=== PATIENT | male | born 1995 | race Caucasian/White ===

== ENCOUNTER 2019-08-11 13:12 | Emergency (ER) | payer MEDICAID ==
[~2019-08-11] VITALS: Ht 172.7 cm; Wt 109.8 kg
[2019-08-11 13:17] VITALS: BP 135/89
[2019-08-11] MEDS ORDERED: ALBUTEROL 0.083% 2.5 MG/3 ML NEBU INH ONE (14:10)
[2019-08-11] MEDS ORDERED: KETOROLAC 60 MG/2 ML VIAL IM ONE (14:10)
[2019-08-11 16:08] VITALS: BP 112/68
== END 2019-08-11 16:07 | disposition home or self-care (01) ==
LOC: MED 13:12
DX: R09.1 Pleurisy (principal); F12.90 Cannabis use, unspecified, uncomplicated
CPT/HCPCS: 71046; 94640; 96372; 99283; J1885; J7613; 93005

== ENCOUNTER 2021-08-30 15:30 | Emergency (ER) | payer MEDICAID, OTHER ==
[~2021-08-30] VITALS: Ht 170.2 cm; Wt 123.4 kg
[2021-08-30 15:46] VITALS: BP 147/93
--- NOTE | 2021-08-30 15:57 | NUR ---
PT AMBULATED TO ER BED 4 WITH A STEADY GAIT.
--- NOTE | 2021-08-30 16:02 | NUR ---
25 Y/O MALE C/O RECTAL PAIN 04/21 DESCRIBES SHARP WITH PALPATION PER MD X 2DAYS. PT STATES AGGRAVATED BY WALKING AND COUGHING. PT REPORTS LAST BM 08/29/21 WITH HARD STOOLS. DENIES RECTAL BLEEDING. DENIES TRAUMA TO AREA. DENIES URINARY SYMPTOMS. NO MEDS TAKEN. DENIES PMH NKA
--- NOTE | 2021-08-30 16:23 | NUR ---
DR. MIRANDA AT PT BEDSIDE FOR FURTHER EVALUATION.
--- NOTE | 2021-08-30 16:23 | NUR ---
Female [employer] Assembler accompanied male patient for Rectal Exam.
--- NOTE | 2021-08-30 16:42 | NUR ---
PT TAKEN TO XR VIA W/C.
--- NOTE | 2021-08-30 16:51 | NUR ---
PT TAKEN TO ER BED 4 VIA W/C.
[2021-08-30] MEDS ORDERED: HYDR25SU91 RC (17:12)
[2021-08-30] MEDS ORDERED: NAPR-54 PO (17:12)
[2021-08-30 17:40] VITALS: BP 141/84
--- NOTE | 2021-08-30 17:42 | NUR ---
Patient discharged with v/s stable. Written and verbal after care instructions given HEMORRHOIDSand explained. Patient alert, oriented and verbalized understanding of instructions. Ambulatory with steady gait. All questions addressed prior to discharge. ID band removed. Patient advised to follow up with PMD. Rx of ANUSOL AND NAPROXEN given. Patient educated on indication of medication including possible reaction and side effects. Opportunity to ask questions provided and answered.
== END 2021-08-30 17:42 | disposition home or self-care (01) ==
LOC: MED 15:30
DX: K62.89 Other specified diseases of anus and rectum (principal); Z79.899 Other long term (current) drug therapy
CPT/HCPCS: 74018; 99283

== ENCOUNTER 2022-05-13 08:50 | Emergency (ER) | payer OTHER ==
[~2022-05-13] VITALS: Ht 172.7 cm; Wt 116.1 kg
[~2022-05-13 08:50] MED LIST: HYDR25SU91 RC; NAPR-54 PO
[2022-05-13 08:51] VITALS: BP 154/96
[2022-05-13] MEDS ORDERED: ONDANSETRON 4 MG/2 ML VIAL IVP ONE ×2 (09:05→10:00)
[2022-05-13] MEDS ORDERED: NACL 0.9% 1,000 ML IV ONE (09:05)
[2022-05-13 09:31] LABS: BASOPHILS % (AUTO) 0.3 % (0.0-2.0); EOSINOPHILS # (AUTO) 0.1 K/uL (0-0.4); EOSINOPHILS % (AUTO) 1.6 % (0.0-4.0); HEMATOCRIT 45.9 % (36-52); HEMOGLOBIN 15.5 g/dL (12.0-18.0); LYMPHOCYTES # (AUTO) 1.6 K/uL (2.0-11.5); LYMPHOCYTES % (AUTO) 19.3 % (20.5-51.1); MEAN CORPUSCULAR HEMOGLOBIN 29 pg (27-31); MEAN CORPUSCULAR HGB CONC 34 g/dL (33-37); MEAN CORPUSCULAR VOLUME 84.3 fL (80-94); MONOCYTES # (AUTO) 1.2 K/uL (0.8-1.0); MONOCYTES % (AUTO) 14.4 % (1.7-9.3); NEUTROPHILS # (AUTO) 5.2 K/uL (1.8-7.7); NEUTROPHILS % (AUTO) 64.4 % (42.2-75.2); PLATELET COUNT (AUTO) 203 K/uL (140-450); RED BLOOD CELL COUNT(AUTO) 5.44 MIL/uL (4.20-6.10); RED CELL DISTRIBUTION WIDTH 13.8 % (11.6-13.7); WHITE BLOOD COUNT (AUTO) 8.1 K/uL (4.8-10.8)
--- NOTE | 2022-05-13 09:45 | NUR ---
26 Y/O MALE BIB SELF C/O OF ABD PAIN, N/V/D AND CONDE X3DAYS. PER PT HE ATE A BURRITO AND A TACO FROM A STREET STALL. DENIES ANY BLOOD IN STOOL OR VOMITUS. NKA PMH: DENIES
[2022-05-13 09:54] LABS: ALBUMIN 3.8 g/dL (3.4-5.0); ANION GAP 12.4 (8-16); CARBON DIOXIDE 28.5 mmol/L (21-32); CREATININE 0.9 mg/dL (0.6-1.3); POTASSIUM 3.9 mmol/L (3.5-5.1); TOTAL BILIRUBIN 0.4 mg/dL (0.0-1.0)
[2022-05-13] MEDS ORDERED: KETOROLAC 30 MG/ML VIAL IVP ONE (10:00)
--- NOTE | 2022-05-13 10:00 | NUR ---
DR MIRANDA AT BEDSIDE FOR EVAL
--- NOTE | 2022-05-13 10:19 | NUR ---
PT AMBULATED TO BATHROOM WITH STEADY GAIT
[2022-05-13 10:24] VITALS: BP 135/85
[2022-05-13 11:02] LABS: APPEARANCE,URINE CLEAR (CLEAR); BILIRUBIN,URINE NEGATIVE (NEGATIVE); BLOOD, URINE NEGATIVE (NEGATIVE); COLOR,URINE YELLOW (YELLOW); LEUKOCYTE ESTERASE ,URINE NEGATIVE (NEGATIVE); NITRITE, URINE NEGATIVE (NEGATIVE); UGLUCOSE NEGATIVE (NEGATIVE)
[2022-05-13] MEDS ORDERED: AMOX500C25 PO (11:26)
[2022-05-13] MEDS ORDERED: NAPR-54 PO (11:26)
[2022-05-13] MEDS ORDERED: ONDA-188 SL (11:26)
--- NOTE | 2022-05-13 11:45 | NUR ---
Patient discharged with v/s stable. Written and verbal after care instructions given and explained. Patient alert, oriented and verbalized understanding of instructions. Ambulatory with steady gait. All questions addressed prior to discharge. ID band removed. Patient advised to follow up with PMD. Rx of AMOXICILLIN, NAPROXEN, ZOFRAN ODT given. Patient educated on indication of medication including possible reaction and side effects. Opportunity to ask questions provided and answered.
== END 2022-05-13 11:45 | disposition home or self-care (01) ==
LOC: MED 08:50
DX: J02.9 Acute pharyngitis, unspecified (principal); R11.2 Nausea with vomiting, unspecified; R19.7 Diarrhea, unspecified; F12.90 Cannabis use, unspecified, uncomplicated; Z79.899 Other long term (current) drug therapy
CPT/HCPCS: 36415; 80053; 81003; 83690; 85025; 87081; 96361; 96374; 96375; 99284; J1885; J2405; J7030

== ENCOUNTER 2022-08-16 14:40 | Emergency (ER) | payer OTHER ==
[~2022-08-16] VITALS: Ht 175.3 cm; Wt 117.9 kg
[~2022-08-16 14:40] MED LIST changes: +AMOX500C25 PO; +ONDA-188 SL
[2022-08-16 14:52] VITALS: BP 163/101
--- NOTE | 2022-08-16 14:52 | NUR ---
PT AMBULATED TO ER BED 7
--- NOTE | 2022-08-16 15:02 | NUR ---
PA Andrew evaluating patient at bedside.
--- NOTE | 2022-08-16 15:05 | NUR ---
26 y/o male bib self with c/o ear difficulty hearing out of bilateral ears and pressure x 4 days. Per patient, he cleans the inside of his ears with Q-tips and recently stopped. Patient denies any pain, fever or chills. Medical History: Denies NKDA
--- NOTE | 2022-08-16 15:32 | NUR ---
bilateral ears irrigated with solution of normal saline, hydrogen peroxide
[2022-08-16] MEDS ORDERED: CARB15DR61 OT (15:45)
[2022-08-16] MEDS ORDERED: AMOX-999 PO (15:45)
[2022-08-16 16:07] VITALS: BP 167/97
--- NOTE | 2022-08-16 16:07 | NUR ---
Patient discharged with v/s stable. Written and verbal after care instructions given. Patient alert, oriented and verbalized understanding of instructions. Ambulatory with to car. All questions addressed prior to discharge. ID band removed. Patient advised to follow up with PMD. Rx of Augmentin 500-125 Tablet and Debrox given. Opportunity to ask questions provided and answered.
--- NOTE | 2022-08-16 16:14 | NUR ---
The patient's care was reviewed and supervised by [facility], RN.
== END 2022-08-16 16:07 | disposition home or self-care (01) ==
LOC: MED 14:40
DX: H61.22 Impacted cerumen, left ear (principal); H66.92 Otitis media, unspecified, left ear; R03.0 Elevated blood-pressure reading, without diagnosis of hypertension
CPT/HCPCS: 99283

== ENCOUNTER 2022-10-09 07:01 | Emergency (ER) | payer OTHER ==
[~2022-10-09] VITALS: Ht 172.7 cm; Wt 117.9 kg
[~2022-10-09 07:01] MED LIST changes: +AMOX-999 PO; +CARB15DR61 OT
[2022-10-09 07:09] VITALS: BP 129/90
--- NOTE | 2022-10-09 07:13 | NUR ---
TO LOBBY A/W BED AMBULATORY
--- NOTE | 2022-10-09 07:15 | NUR ---
BIB SELF C/O COUGH,FOR A WEEK, 2/10 SORETHROAT STARTED LAST NIGHT.
[2022-10-09] MEDS ORDERED: ACETAMINOPHEN EXTRA STRENGTH 500 MG TAB PO ONE (07:25)
[2022-10-09] MEDS ORDERED: IBUPROFEN 600 MG TAB PO ONE (07:25)
[2022-10-09] MEDS ORDERED: AMOXIL/CLAVULANATE 875/125 MG 1 TAB PO ONE (07:25)
[2022-10-09] MEDS ORDERED: DEXAMETHASONE 10 MG/ML VIAL IM ONE (07:25)
--- NOTE | 2022-10-09 07:37 | NUR ---
STREP, COVID, FLU SWABS DONE.
[2022-10-09] MEDS ORDERED: IBUP-2213 PO (09:14)
[2022-10-09] MEDS ORDERED: AMOX-1230 PO (09:14)
[2022-10-09 09:40] VITALS: BP 129/90
--- NOTE | 2022-10-09 09:56 | NUR ---
Patient discharged with v/s stable. Written and verbal after care instructions given and explained. Patient alert, oriented and verbalized understanding of instructions. Ambulatory with steady gait. All questions addressed prior to discharge. ID band removed. Patient advised to follow up with PMD. Rx of amox-clav, ibuprofen (sent) given. Patient educated on indication of medication including possible reaction and side effects. Opportunity to ask questions provided and answered. work note given
== END 2022-10-09 09:56 | disposition home or self-care (01) ==
LOC: MED 07:01
DX: J36 Peritonsillar abscess (principal); Z20.822 Contact with and (suspected) exposure to COVID-19; Z79.899 Other long term (current) drug therapy
CPT/HCPCS: 71045; 87081; 87426; 87804; 96372; 99284; J1100